=== PATIENT | female | born 1940 | race Caucasian/White ===

== ENCOUNTER → 2016-10-03 | Outpatient (CLI) | payer OTHER ==
[~2016-10-03] MED LIST: CALC-141 PO; CHOL100018 PO; CYCL5TAB PO; GARL1CAP3 PO; HYDR-3241 PO; LISI1TAB5 PO; LISI5TAB7 PO; VITA1CAP PO
== END | disposition home or self-care (01) ==
LOC: CFH 09:47 → EDSTATUS 10:15
PROVIDERS: ATTEND Internal Medicine Cardiovascular Disease
DX: I10 Essential (primary) hypertension (principal); E78.00 Pure hypercholesterolemia, unspecified
CPT/HCPCS: 75571

== ENCOUNTER → 2018-08-01 | Outpatient (CLI) | payer MEDICARE, OTHER ==
[~2018-08-01] MED LIST changes: +CHOL100012 PO; -CHOL100018 PO
== END | disposition home or self-care (01) ==
LOC: CFH 07:32
PROVIDERS: ATTEND Internal Medicine Cardiovascular Disease
DX: I11.9 Hypertensive heart disease without heart failure (principal); I08.8 Other rheumatic multiple valve diseases
CPT/HCPCS: 78452; 93017; 93306; A9502

== ENCOUNTER 2019-08-14 14:12 | Observation (INO) | payer MEDICARE, OTHER ==
[~2019-08-14] VITALS: Ht 162.6 cm; Wt 75.3 kg
[~2019-08-14 14:12] MED LIST changes: +LISI1TAB19 PO; -LISI1TAB5 PO
--- NOTE | 2019-08-14 14:22 | NUR ---
PT CHANGED IN TO GOWN PT STATES SHE NEEDS TO USE THE RESTROOM. PT ADAMANT ABOUT NOT USING BED GARCIA OR COMMODE. PT WALKED TO BATHROOM. PT HAS STEADY GAIT. PT STATES "I'M NOT DIZZY. SOMETIMES I FEEL LIGHT HEADED." STAYED WITH PT. PT NOW BACK ON CASSI Addendum: 08/14/19 at 1444 by DIONNE BREAK RN:
--- NOTE | 2019-08-14 14:38 | NUR ---
79 Y/O FEMALE BIB AMBULANCE WITH C/O CP/DIZZINESS. PER REPORT PT HAD SOME CP LAST NIGHT AND THEN IT SUBSIDED. THEN ABOUT 10 GOT DIZZY. PIV ESTABLISHED HAY CHOPPER, [address] ASA ADMINISTERED HAY CHOPPER. NO C/O N/V/D, TRAUMA, SYNCOPE. PER PT "I GOT SOME CP LAST NIGHT, IT WOKE ME UP. I THOUGHT IT WAS AN UPSET STOMACH SO I TOOK SOME PEPTO. AFTERWARDS I WENT BACK TO SLEEP. THEN THIS MORNING I GOT LIGHT HEADED AND HAD SOME PAIN. I DON'T HAVE ANY PAIN NOW, JUST PRESSURE. I FEEL A LITTLE LIGHT HEADED AT TIMES, NOT PAIN." PT PLACED ON CONT PULSE OX,NIBP, MOLD HOLDER. NADN.
--- NOTE | 2019-08-14 14:44 | NUR ---
BREAK RN: BEDSIDE REPORT TO HENNY SMITH.
--- NOTE | 2019-08-14 14:51 | NUR ---
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
--- NOTE | 2019-08-14 14:53 | NUR ---
THIS TECH DID EKG
[2019-08-14 14:55] LABS: BASOPHILS # (AUTO) 0.03 x10^3/uL (0-0.1); BASOPHILS % (AUTO) 0 % (0-1); EOSINOPHILS # (AUTO) 0.07 x10^3/uL (0-0.4); EOSINOPHILS % (AUTO) 1 % (1-7); LYMPHOCYTES # (AUTO) 2.41 x10^3/uL (1-3.4); LYMPHOCYTES % (AUTO) 28 % (22-44); MD NO; MEAN CORPUSCULAR HEMOGLOBIN 33.1 pg (27.0-34.8); MEAN CORPUSCULAR HGB CONC 33.5 g/dL (32.4-35.8); MEAN CORPUSCULAR VOLUME 98.6 fL (80-100); MEAN PLATELET VOLUME 8.4 fL (7.4-10.4); MONOCYTES # (AUTO) 0.92 x10^3/uL (0.2-0.8); MONOCYTES % (AUTO) 11 % (2-9); NEUTROPHILS # (AUTO) 5.21 x10^3/uL (1.8-6.8); NEUTROPHILS % (AUTO) 60 % (42-75); PLATELET COUNT 211 x10^3/uL (130-400); RED BLOOD COUNT 4.19 x10^6/uL (3.82-5.3); RED CELL DISTRIBUTION WIDTH 13.2 % (9.6-15.2)
[2019-08-14] MEDS ORDERED: ASPIRIN 81 MG TABLET CHEW PO ONE (15:00)
[2019-08-14] MEDS ORDERED: NITROGLYCERIN SINGLE TAB 0.4 MG SL PRN (15:00)
[2019-08-14] MEDS ORDERED: NITROGLYCERIN SINGLE TAB 0.4 MG SL ONE (15:02)
--- NOTE | 2019-08-14 15:04 | NUR ---
PT TO IMAGING.
[2019-08-14 15:06] LABS: ALANINE AMINOTRANSFERASE 21 U/L (12-78); ALBUMIN 3.5 g/dL (3.4-5.0); ANION GAP 6 mmol/L (5-15); CALCIUM 8.9 mg/dL (8.5-10.1); CHLORIDE 110 mmol/L (98-107); CREATININE 1.18 mg/dL (0.55-1.02)
[2019-08-14 15:11] LABS: ALKALINE PHOSPHATASE 98 U/L (45-117); BILIRUBIN,TOTAL 0.6 mg/dL (0.2-1.0); TOTAL PROTEIN 7.2 g/dL (6.4-8.2); TROPONIN I < 0.015 ng/mL (0.000-0.045)
--- NOTE | 2019-08-14 15:22 | NUR ---
PT STATES SHE FEELS SOME RELEIF FROM CHEST PRESSURE AFTER FIRST DOSE OF NITRO. STATES THAT SHE FEELS IT "MADE HER HEART POUND." PT STATES BASELINE HR IS 55, CURRENT HR IS 60. PT AWARE THAT MORE NITRO IS ORDERED, REFUSING AT THIS TIME. PT EDUCATED TO LET THIS RN KNOW IF SHE WANTS MORE NITRO. CALL LIGHT WITHIN REACH. WILL CONTINUE TO MONITOR.
--- NOTE | 2019-08-14 16:07 | NUR ---
ERP TO BEDSIDE.
--- NOTE | 2019-08-14 16:28 | NUR ---
ADMITTING MD TO BEDSIDE.
[2019-08-14] MEDS ORDERED: ONDANSETRON 2MG/ML, 2ML IVPush PRN (17:00)
[2019-08-14] MEDS ORDERED: NITROGLYCERIN 0.4 MG BOTTLE (25 TABS) SL PRN (17:00)
[2019-08-14] MEDS ORDERED: ONDANSETRON ODT 4 MG PO PRN (17:00)
[2019-08-14] MEDS ORDERED: ACETAMINOPHEN 325 MG TABLET PO PRN (17:00)
[2019-08-14] MEDS ORDERED: POLYETHYLENE GLYCOL 17 GM PACKET PO PRN (17:00)
[2019-08-14] MEDS ORDERED: SENNA/DOCUSATE TABLET PO PRN (17:00)
[2019-08-14] MEDS ORDERED: ENOXAPARIN 40 MG/0.4 ML SQ SCH (17:00)
--- NOTE | 2019-08-14 17:21 | NUR ---
PT AMBULATORY TO BATHROOM WITH STAND BY ASSIST.
--- NOTE | 2019-08-14 18:10 | NUR ---
PT LAYING IN BED, EYES CLOSED, RESPIRATIONS EVEN AND UNLABORED. DIET TRAY ORDERED.
[2019-08-14] MEDS ORDERED: ENOXAPARIN 40 MG/0.4 ML ONE (18:12)
--- NOTE | 2019-08-14 18:46 | NUR ---
BEDSIDE REPORT GIVEN TO HENNY SOW. PT LAYING IN BED, WATCHING TV, NO SIGNS OF DISTRESS.
[2019-08-14 19:53] VITALS: BP 160/73
[2019-08-14 20:50] LABS: TROPONIN I < 0.015 ng/mL (0.000-0.045)
[2019-08-14] MEDS ORDERED: LATANOPROST OPHTH 0.005%, 2.5ML EACHEYE SCH (21:00)
[2019-08-14] MEDS ORDERED: ATORVASTATIN 20 MG TABLET PO SCH (21:00)
[2019-08-15 00:05] VITALS: BP 139/75
[2019-08-15 03:00] LABS: BASOPHILS # (AUTO) 0.05 x10^3/uL (0-0.1); BASOPHILS % (AUTO) 1 % (0-1); EOSINOPHILS # (AUTO) 0.14 x10^3/uL (0-0.4); EOSINOPHILS % (AUTO) 2 % (1-7); LYMPHOCYTES % (AUTO) 30 % (22-44); MD NO; MEAN CORPUSCULAR HGB CONC 33.2 g/dL (32.4-35.8); MEAN CORPUSCULAR VOLUME 99.3 fL (80-100); MEAN PLATELET VOLUME 8.4 fL (7.4-10.4); MONOCYTES # (AUTO) 0.91 x10^3/uL (0.2-0.8); MONOCYTES % (AUTO) 12 % (2-9); NEUTROPHILS # (AUTO) 4.41 x10^3/uL (1.8-6.8); NEUTROPHILS % (AUTO) 56 % (42-75); PLATELET COUNT 201 x10^3/uL (130-400); RED BLOOD COUNT 4.21 x10^6/uL (3.82-5.3); RED CELL DISTRIBUTION WIDTH 12.8 % (9.6-15.2)
[2019-08-15 03:04] LABS: HCT (SEDRATE) 41.8 % (34.6-47.8)
[2019-08-15 03:15] LABS: ANION GAP 7 mmol/L (5-15); CALCIUM 8.6 mg/dL (8.5-10.1); CHLORIDE 110 mmol/L (98-107); CHOLESTEROL, TOTAL 126 mg/dL (140-239); CREATININE 1.15 mg/dL (0.55-1.02)
[2019-08-15 03:17] LABS: CHOL/HDL RATIO 2.1; HDL CHOL % 48 % (28-40); HDL CHOLESTEROL (DIRECT) 61 mg/dL (40-60); LDL CHOLESTEROL,CALCULATED 49 mg/dL (54-169); LDL/HDL RATIO 0.8 (0.5-3.0); TRIGLYCERIDES 79 mg/dL (50-200); VLDL CHOLESTEROL 16 mg/dL (0-25)
[2019-08-15 03:45] LABS: TROPONIN I < 0.015 ng/mL (0.000-0.045)
[2019-08-15] MEDS ORDERED: ASPIRIN 81 MG TABLET EC PO SCH (06:00)
[2019-08-15 06:55] VITALS: BP 148/76
[2019-08-15] MEDS ORDERED: AMLODIPINE 5 MG TABLET PO SCH (09:00)
[2019-08-15] MEDS: FEBUXOSTAT 40 MG TABLET PO SCH ×2 (09:00→12:40)
[2019-08-15] MEDS ORDERED: REGADENOSON 0.4 MG/5 ML SYRINGE ONE (09:28)
[2019-08-15 13:09] VITALS: BP 121/73
[2019-08-15] MEDS ORDERED: FAMO20TA7 PO (15:55)
== END 2019-08-15 17:20 | disposition home or self-care (01) ==
LOC: ED 16:04 → EDIP 16:10 → INTOOBSV 16:10 → 5SO 19:34
PROVIDERS: ADMIT Family Medicine; ATTEND Family Medicine
DX: R07.89 Other chest pain (principal); I10 Essential (primary) hypertension; E78.5 Hyperlipidemia, unspecified; I34.0 Nonrheumatic mitral (valve) insufficiency; H40.9 Unspecified glaucoma; K59.09 Other constipation; N28.9 Disorder of kidney and ureter, unspecified; Z79.890 Hormone replacement therapy; Z79.899 Other long term (current) drug therapy
CPT/HCPCS: 36415; 71046; 78452; 80048; 80053; 80061; 83036; 84484; 85025; 85651; 86140; 93005; 93017; 93306; 96372; 99285; A9502; C9898; G0378; J1650; J2785